=== PATIENT | female | born 1985 ===

== ENCOUNTER 2017-12-24 05:16 | Inpatient (IN) | payer BC ==
[2017-12-24] MEDS ORDERED: Lactated Ringer's 1,000 ML IV SCH ×3 (05:38→09:00)
[2017-12-24] MEDS ORDERED: Ondansetron HCl/PF 4 MG/2 ML Vial IVP PRN ×4 (05:38→08:49)
[2017-12-24] MEDS ORDERED: Promethazine HCl 25 MG/ML VIAL IM PRN ×2 (05:38→07:21)
[2017-12-24] MEDS ORDERED: CEFAZOLIN/Water 2 GM/20 ML SYRINGE SLOW IVP SCH (05:45)
[2017-12-24] MEDS ORDERED: Bicitra 30 ML UDCUP PO SCH (05:45)
[2017-12-24 05:49] VITALS: BMI 35.2
[2017-12-24 06:34] LABS: Hemoglobin 13.2 g/dL (12.0-16.0); Mean Corpuscular HGB CONC 36.2 g/dL (32.0-36.0); Mean Corpuscular Hemoglobin 33.4 pg (27.0-31.0); Mean Corpuscular Volume 92.5 fL (78.0-98.0); Mean Platelet Volume 7.1 fL (7.4-10.4); Platelet Count 179 thou/uL (130-400); RBC Distribution Width 12.3 % (11.5-14.5); Red Blood Cell (RBC) Count 3.94 mill/uL (4.20-5.40); White Blood Cell (WBC) Count 8.9 thou/uL (4.8-10.8)
[2017-12-24] MEDS ORDERED: PHENYLEPHRINE-NS 100 MCG/ML 10 ML SYRINGE ONE ×2 (07:04→11:14)
[2017-12-24] MEDS ORDERED: Ketorolac Tromethamine 30 MG/ML VIAL ONE ×2 (07:04→11:14)
[2017-12-24] MEDS ORDERED: ePHEDrine/0.9% NaCl/PF SYRINGE 50 mg/10 ml ONE ×2 (07:04→11:14)
[2017-12-24] MEDS ORDERED: Fentanyl 100 MCG/2 ML VIAL ONE (07:04)
[2017-12-24] MEDS ORDERED: Morphine PF 1 MG/ML SYR ONE (07:04)
[2017-12-24] MEDS ORDERED: Ondansetron HCl/PF 4 MG/2 ML Vial ONE ×2 (07:04→11:14)
[2017-12-24] MEDS ORDERED: Oxytocin 10 UNITS/ML VIAL ONE (07:04)
[2017-12-24] MEDS ORDERED: Bupivacaine 0.75% W/DEXTROSE 8.25% 2 ML AMP ONE (07:12)
[2017-12-24] MEDS ORDERED: Lidocaine 1% PF 5 ML VIAL ONE (07:12)
[2017-12-24 07:14] LABS: HBSAg Index 0.14 S/CO (0-0.99); Hep B Surf Ag Non-Reactive S/CO (NonReactive); Syphilis Antibody Nonreactive (Nonreactive); Syphilis Antibody Index 0.04 S/CO (<1.00 Non-Reactive)
[2017-12-24] MEDS ORDERED: Eucerin (Mineral Oil/Petrolatum,White) 30 gm Jar TOP PRN (07:21)
[2017-12-24] MEDS ORDERED: diphenhydrAMINE 50 MG/ML VIAL IVP PRN (07:21)
[2017-12-24] MEDS ORDERED: Meperidine HCl/PF 25 MG/ML VIAL SLOW IVP PRN (07:21)
[2017-12-24] MEDS ORDERED: Naloxone HCl 0.4 mg/ml Vial IV PRN (07:21)
[2017-12-24] MEDS ORDERED: HYDROmorphone 2 MG/ML VIAL SLOW IVP PRN (07:21)
[2017-12-24] MEDS ORDERED: Ketorolac Tromethamine 30 MG/ML VIAL IVP PRN (07:21)
[2017-12-24] MEDS ORDERED: Naloxone HCl 0.4 mg/ml Vial IVP PRN ×2 (07:21)
[2017-12-24] MEDS ORDERED: Promethazine HCl 25 MG SUPP PR PRN (07:21)
[2017-12-24] MEDS ORDERED: Ketorolac Tromethamine 30 MG/ML VIAL IVP SCH (07:30)
[2017-12-24] MEDS ORDERED: Communication Order-Pharmacy FS SCH (07:30)
[2017-12-24] MEDS ORDERED: Atropine Sulfate 0.4 mg/1 ml Vial ONE (07:39)
[2017-12-24] MEDS ORDERED: Acetaminophen 325 MG TAB PO PRN (08:49)
[2017-12-24] MEDS ORDERED: Lanolin Ointment 7 GM TUBE TOP PRN (08:49)
[2017-12-24] MEDS ORDERED: diphenhydrAMINE 25 MG CAP PO PRN (08:49)
[2017-12-24] MEDS ORDERED: Simethicone Chewable 80 MG TAB PO PRN (08:49)
[2017-12-24] MEDS ORDERED: Zolpidem Tartrate 5 MG TAB PO PRN (08:49)
[2017-12-24] MEDS ORDERED: Bisacodyl 10 MG SUPP PR PRN (08:49)
[2017-12-24] MEDS ORDERED: NS / Oxytocin 40 units/1000ml 1,000 ML IV SCH (09:00)
[2017-12-24] MEDS: Docusate Calcium (SURFAK) 240 MG CAP PO SCH ×2 (11:34→21:12)
[2017-12-24] MEDS: Ferrous Sulfate 325 MG TAB PO SCH (11:34)
[2017-12-24] MEDS: Prenatal Vitamin 1 TAB PO SCH (11:35)
[2017-12-24] MEDS: Ibuprofen 800 MG TAB PO SCH (14:57)
[2017-12-24] MEDS ORDERED: HYDROcodone/Acetaminophen 5/325 mg Tablet PO PRN ×2 (19:30)
[2017-12-24] MEDS ORDERED: Meperidine HCl/PF 25 MG/ML VIAL IM PRN (19:30)
[2017-12-25] MEDS: Ferrous Sulfate 325 MG TAB PO SCH ×3 (01:51→22:25)
[2017-12-25] MEDS: Ibuprofen 800 MG TAB PO SCH ×4 (01:53→22:24)
[2017-12-25 06:01] LABS: Hemoglobin 12.2 g/dL (12.0-16.0); Mean Corpuscular HGB CONC 35.7 g/dL (32.0-36.0); Mean Corpuscular Hemoglobin 33.6 pg (27.0-31.0); Mean Platelet Volume 7.3 fL (7.4-10.4); Platelet Count 142 thou/uL (130-400); RBC Distribution Width 12.4 % (11.5-14.5); Red Blood Cell (RBC) Count 3.62 mill/uL (4.20-5.40); White Blood Cell (WBC) Count 8.4 thou/uL (4.8-10.8)
[2017-12-25] MEDS ORDERED: Adacel (T-DAP) 0.5 ML VIAL IM ONE (09:00)
[2017-12-25] MEDS: Docusate Calcium (SURFAK) 240 MG CAP PO SCH ×2 (09:17→22:24)
[2017-12-25] MEDS: Prenatal Vitamin 1 TAB PO SCH (09:17)
--- NOTE | 2017-12-25 13:33 | OP ---
DATE OF SERVICE: 12/24/2017 ATTENDING STAFF PHYSICIAN: Hiren Reich M.D. SURGEONS: 1. Hiren Reich M.D. 2. Ana Dewitt DO, [facility]. CORE CUTTER SURGEON: Ernestina Villarreal M.D. PREOPERATIVE DIAGNOSES: 1. Term intrauterine at 39 weeks. 2. Prior x2. POSTOPERATIVE DIAGNOSES: 1. Term intrauterine at 39 weeks. 2. Prior x2. PROCEDURE: Repeat low transverse section. ANESTHESIA: Spinal catheterization. FINDINGS: 1. Vigorous male infant, 7 pounds 12 ounces, Apgars 8 and 9. 2. Normal uterus, tubes and ovaries. COMPLICATIONS: None. SPECIMENS REMOVED: Cord blood. ESTIMATED BLOOD LOSS: 600 mL DESCRIPTION OF PROCEDURE: After thorough consent and counseling, Mrs. Baker was taken to the opera tin room and an adequate level of anesthesia was obtained via spinal catheterization. The patient w as prepped and draped in the usual sterile fashion for abdominal surgery. A Kenny was placed in the bladder, which was drained of clear urine. Attention was then turned to performing the repeat low tr ansverse section. A Pfannenstiel incision was made and the old scar was excised. The incision was carried sharply to t he fascia, which was also sharply incised. The midline was identified and the rectus muscles were re tracted laterally. The abdominal peritoneal cavity was entered with the usual safeguards carried out . A retractor was placed and a bladder flap was created on the vesicouterine peritoneum. A bladder blade was then placed. A low transverse incision was made on the well-developed lower uterine segmen t. Upon entering the amniotic sac, copious amount of clear amniotic fluid was visualized. The infan t was noted to be vertex presentation in the occiput anterior position. Head was delivered and baby was bulb suctioned on the abdomen. Shoulders and body were then delivered in an atraumatic fashion. The cord was doubly clamped and cut and the infant was handed to the pediatric team in attendance fo r the delivery. The infant was a vigorous viable male weighing 7 pounds 12 ounces with Apgars of 8 a nd 9 obtained at 1 and 5 minutes respectively. Cord blood was obtained. The placenta was manually r emoved from the uterus. The uterus was exteriorized and good tone was noted. The uterine cavity was cleared of any remaining clot and fluid. The low transverse incision was closed with a running lock ing ligature of #1 chromic. A second imbricating layer was placed to facilitate strength and hemosta sis. The vesicouterine peritoneum was closed with a running ligature of 3-0 Monocryl. The posterior cul-de-sac and gutters were cleared of clot and fluid. Lap, sponge and needle counts were correct. The uterus, fallopian tubes and ovaries were normal in appearance. The uterus was returned to the a bdomen and good tone and hemostasis was appreciated. Peritoneum was closed with a running ligature o f 2-0 Vicryl. Rectus muscle reapproximation with interrupted ligatures of 2-0 Vicryl and 0 chromic s uture. The fascia was closed with 2 ligatures of 0 Vicryl suture tied in the midline. Good fascial integrity was appreciated. The incision was irrigated with copious amount of warm normal saline. He mostasis was obtained with Bovie cauterization. The subcutaneous tissue was closed with interrupted ligatures of 2-0 plain. The skin was closed with a subcuticular stitch of 4-0 Monocryl. A pressure dressing and ice packs were subsequently placed. Lap, sponge and needle counts correct x3. Blood lo ss during the surgical procedure was approximately 600 mL. The patient was taken to the recovery room in good condition. Immediately following surgery, the pat ient and family were made aware of the surgical procedure and operative findings and questions were a nswered to their satisfaction. Lindsay and her were very appreciative of the care rendered her e at [facility] this morning.
[2017-12-26] MEDS: Ibuprofen 800 MG TAB PO SCH (06:04)
[2017-12-26 06:19] VITALS: TEMP 98.1
[2017-12-26 08:15] VITALS: BP 114/75
== END 2017-12-26 09:52 | disposition home or self-care (01) | DRG 766 ==
LOC: L&D 05:16 → 3SW 11:05
PROVIDERS: ADMIT Obstetrics & Gynecology; ATTEND Obstetrics & Gynecology
PROC: 10D00Z1 Extraction of Products of Conception, Low, Open Approach (ICD-10-PCS; principal; 2017-12-24)
DX: O34.211 Maternal care for low transverse scar from previous cesarean delivery (principal); O99.824 Streptococcus B carrier state complicating childbirth; Z3A.39 39 weeks gestation of pregnancy; Z37.0 Single live birth
CPT/HCPCS: 36415; 51702; 85027; 86780; 86850; 86900; 86901; 87340; J0461; J1885; J2001; J2274; J2405; J2590; J3010; J3490